=== PATIENT | male | born 1985 | race Caucasian/White ===

== ENCOUNTER 2016-07-11 05:53 | Day surgery (SDC) | payer MEDICAID ==
[2016-07-11] MEDS ORDERED: PREGABALIN 150 MG CAP PO ONE (06:00)
[2016-07-11] MEDS ORDERED: OXYCODONE/APAP 5/325 TAB PO PRN (06:00)
[2016-07-11] MEDS ORDERED: ceFAZolin 2 GM/DEXTROSE 100 ML IV ONE (06:00)
[2016-07-11] MEDS ORDERED: ACETAMINOPHEN 500 MG TAB PO ONE (06:00)
[2016-07-11] MEDS ORDERED: BUPIVACAINE/EPI 0.25% 30 ML SDV ONE (06:57)
[2016-07-11] MEDS ORDERED: EPINEPHrine 30 MG/30 ML MDV ONE (06:57)
[2016-07-11] MEDS ORDERED: DEXAMETHASONE 4 MG/ML VIAL ONE (07:11)
[2016-07-11] MEDS ORDERED: PROPOFOL/EMULSION 500 MG/50 ML BOTTLE IV ONE (07:11)
[2016-07-11] MEDS ORDERED: fentaNYL 250 MCG/5 ML INJ ONE (07:11)
[2016-07-11] MEDS ORDERED: LIDOCAINE 2% 5 ML SDV ONE (07:11)
[2016-07-11] MEDS ORDERED: MIDAZOLAM 2 MG/2 ML VIAL ONE (07:11)
[2016-07-11] MEDS ORDERED: ROCURONIUM 100 MG/10 ML VIAL ONE ×2 (07:11→08:33)
[2016-07-11] MEDS ORDERED: SCOPOLAMINE HYDROBROMIDE 1.5 MG PATCH TD ONE (07:30)
[2016-07-11] MEDS ORDERED: fentaNYL 100 MCG/2 ML INJ ONE ×3 (10:33→14:38)
[2016-07-11] MEDS ORDERED: KETOROLAC 30 MG/1 ML SDV ONE (14:25)
[2016-07-11] MEDS ORDERED: SUGAMMADEX SODIUM 200 MG/2 ML VIAL IVP ONE (14:25)
[2016-07-11] MEDS ORDERED: ONDANSETRON 4 MG/2 ML VIAL ONE ×2 (14:25→14:57)
[2016-07-11] MEDS ORDERED: PROMETHAZINE HCL 25 MG/ML INJ ONE (14:57)
[2016-07-11] MEDS ORDERED: HYDROmorphONE/DILAUDID 1 MG/ML SYR ONE (15:06)
[2016-07-11] MEDS ORDERED: OXYCODONE/APAP 5/325 TAB ONE ×2 (15:06→16:02)
[2016-07-11] MEDS ORDERED: MEPERIDINE 25 MG/ML SYR ONE (15:10)
== END 2016-07-11 18:05 | disposition home or self-care (01) ==
LOC: FSGY 05:53
PROVIDERS: ATTEND Orthopaedic Surgery Sports Medicine
PROC: 0SQB4ZZ Repair Left Hip Joint, Percutaneous Endoscopic Approach (ICD-10-PCS; principal; 2016-07-11 07:19)
PROC: 0SQ94ZZ Repair Right Hip Joint, Percutaneous Endoscopic Approach (ICD-10-PCS; principal; 2016-07-11 07:19)
DX: M25.851 Other specified joint disorders, right hip (principal); M25.852 Other specified joint disorders, left hip
CPT/HCPCS: 29914; 76001; C1769; C1713; J0690; J1100; J1170; J1885; J2250; J2405; J2550; J2704; J3010